=== PATIENT | female | born 1970 | race Two or more races ===

== ENCOUNTER → 2016-07-30 | Outpatient (CLI) | payer BC ==
[2016-07-30 08:27] LABS: CHLORIDE,CL 105 mmol/L (98-110); SODIUM,NA 141 mmol/L (136-146)
== END | disposition home or self-care (01) ==
LOC: MW.CHFP 07:36
PROVIDERS: ATTEND Student in an Organized Health Care Education/Training Program
DX: E78.1 Pure hyperglyceridemia (principal); I10 Essential (primary) hypertension
CPT/HCPCS: 36415; 80053; 80061

== ENCOUNTER 2019-11-24 09:55 | Day surgery (SDC) | payer BC ==
[~2019-11-24 09:55] MED LIST: Lactated Ringers 1,000 ML IV SCH; Lidocaine 2% 5 ML SDV ONE; Propofol 200 MG/20 ML SDV ONE; Sodium Chloride 0.9% 10 ML SDV IV PRN; Sodium Chloride 0.9% 10 ML Syringe FLUSH PRN; Sodium Chloride 0.9% 2.5 ML Syringe FLUSH PRN; fentaNYL 100 MCG/2 ML SDV ONE
[2019-11-24] MEDS ORDERED: Midazolam 1 MG/ML 2 ML SDV ONE (10:37)
--- NOTE | 2019-11-24 10:55 | PCM.PREANE ---
Preanesthetic Assessment - Anesthesia/Transfusion/Family Hx Anesthesia History: Prior Anesthesia Without Reaction Family History of Anesthesia Reaction: No Transfusion History: No Prior Transfusion(s) Intubation History: Unknown - Review of Systems General: No Symptoms Pulmonary: No Symptoms Cardiovascular: No Symptoms Gastrointestinal: Difficulty Swallowing Neurological: No Symptoms Other: Reports: None - Physical Assessment Vital Signs: Last Vital Signs Temp 36.1 C 11/24/19 10:12 Pulse 84 11/24/19 10:12 Resp 16 11/24/19 10:12 BP 132/83 11/24/19 10:12 Pulse Ox 98 11/24/19 10:12 Height: 5 ft 2 in Weight: 70.307 kg ASA Class: 2 Mental Status: Alert & Oriented x3 Airway Class: Mallampati = 1 Dentition: Reports: Normal Dentition Thyro-Mental Finger Breadths: 3 Mouth Opening Finger Breadths: 3 ROM/Head Extension: Full Lungs: Clear to Auscultation, Normal Respiratory Effort Cardiovascular: Regular Rate, Regular Rhythm - Allergies Allergies/Adverse Reactions: Allergies Allergy/AdvReac Type Severity Reaction Status Date / Time lisinopril Allergy Cough Verified 11/24/19 10:18 Penicillins Allergy Other Verified 11/24/19 10:18 shellfish derived Allergy Rash Verified 11/24/19 10:18 - Blood Blood Available: No - Anesthesia Plan Pre-Op Medication Ordered: None - Acknowledgements Anesthesia Type Planned: MAC Pt an Appropriate Candidate for the Planned Anesthesia: Yes Alternatives and Risks of Anesthesia Discussed w Pt/Guardian: Yes Pt/Guardian Understands and Agrees with Anesthesia Plan: Yes PreAnesthesia Questionnaire HEENT History: Reports: Other (See Below) Other HEENT History: wears glasses/contacts Cardiovascular History: Reports: High Cholesterol (presently OK per patient without medications), Hypertension, Other (See Below) Other Cardiovascular History: hx of viral myocarditis Gastrointestinal History: Reports: GERD, Other (See Below) Other Gastrointestinal History: dysphagia, fatty liver 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: Psychiatric History: Reports: Anxiety, Depression - Past Surgical History Head Surgeries/Procedures: Reports: None GI Surgical History: Reports: EGD (7-8 years ago) Female Surgical History: Reports: Hysterectomy - HOME MEDS Home Medications: Home Meds ALPRAZolam [Xanax] 1 mg PO DAILY PRN 03/18/14 [History] Desvenlafaxine [Desvenlafaxine ER] 25 mg PO DAILY 05/03/18 [History] Potassium Chloride 15 meq PO DAILY 05/03/18 [History] amLODIPine Besylate [Amlodipine Besylate] 5 mg PO DAILY 05/03/18 [History] estradioL [Estradiol] 1 mg PO DAILY 05/03/18 [History] hydroCHLOROthiazide [Hydrochlorothiazide] 12.5 mg PO DAILY 05/03/18 [History] Esomeprazole Magnesium 40 mg PO BID 11/20/19 [History] Sucralfate 1 gm PO QID 11/20/19 [History] Zolpidem [Ambien] 10 mg PO BEDTIME PRN 11/20/19 [History] - CURRENT (IN HOUSE) MEDS Current Meds: Current Medications Lactated Ringer's (Ringers, Lactated) 1,000 mls @ 125 mls/hr IV ASDIRECTED MANJU Last Admin: 11/24/19 10:21 Dose: 125 mls/hr Documented by: Sodium Chloride (Saline Flush) 10 ml FLUSH ASDIRECTED PRN PRN Reason: Keep Vein Open Sodium Chloride (Saline Flush) 2.5 ml FLUSH ASDIRECTED PRN PRN Reason: Keep Vein Open Sodium Chloride (Saline Flush) 10 ml FLUSH ASDIRECTED PRN PRN Reason: Keep Vein Open Sodium Chloride (Saline Flush) 2.5 ml FLUSH ASDIRECTED PRN PRN Reason: Keep Vein Open Sodium Chloride (Normal Saline) 10 ml IV ASDIRECTED PRN PRN Reason: IV Use Discontinued Medications Fentanyl (Sublimaze) Confirm Administered Dose 100 mcg .ROUTE .STK-MED ONE Stop: 11/24/19 08:32 Lidocaine (Xylocaine-Mpf 2%) Confirm Administered Dose 5 ml .ROUTE .STK-MED ONE Stop: 11/24/19 08:32 Midazolam HCl (Versed 1 Mg/Ml) Confirm Administered Dose 2 mg .ROUTE .STK-MED ONE Stop: 11/24/19 10:38 Propofol (Diprivan 20 Ml) Confirm Administered Dose 200 mg .ROUTE .STK-MED ONE Stop: 11/24/19 08:32
[2019-11-24] MEDS ORDERED: Propofol 200 MG/20 ML SDV ONE (11:23)
--- NOTE | 2019-11-24 11:41 | PCM.OPNOTE ---
- General Post-Op/Procedure Note Date of Surgery/Procedure: 11/24/19 Operative Procedure(s): Diagnostic EGD and screening colonoscopy Findings: Normal appearing EGD, small transverse colon polyp Pre Op Diagnosis: Dysphagia, heartburn, screening colonoscopy Post-Op Diagnosis: Dysphagia, heartburn, transverse colon polyp Anesthesia Technique: MAC Primary Surgeon: Fransisca Gutiérrez Condition: Good
--- NOTE | 2019-11-24 11:55 | PCM.POSTAN ---
POST ANESTHESIA ASSESSMENT - MENTAL STATUS Mental Status: Alert, Oriented - VITAL SIGNS Vital Signs: Last Vital Signs Temp 36.1 C 11/24/19 10:12 Pulse 69 11/24/19 11:49 Resp 12 11/24/19 11:49 BP 100/43 L 11/24/19 11:49 Pulse Ox 98 11/24/19 11:49 - RESPIRATORY Respiratory Status: Respiratory Rate WNL, Airway Patent, O2 Saturation Stable - CARDIOVASCULAR CV Status: Pulse Rate WNL, Blood Pressure Stable - GASTROINTESTINAL GI Status: No Symptoms - PAIN Pain Score: 0 - POST OP HYDRATION Hydration Status: Adequate & Stable - OBSERVATIONS Free Text/Narrative:: No anesthesia problems
--- NOTE | 2019-11-24 12:09 | PCM48HPAN ---
Post Anesthesia Note - EVALUATION WITHIN 48HRS OF ANESTHETIC Vital Signs in Normal Range: Yes Patient Participated in Evaluation: Yes Respiratory Function Stable: Yes Airway Patent: Yes Cardiovascular Function Stable: Yes Hydration Status Stable: Yes Pain Control Satisfactory: Yes Nausea and Vomiting Control Satisfactory: Yes Mental Status Recovered: Yes Vital Signs: Last Vital Signs Temp 36.2 C 11/24/19 11:55 Pulse 77 11/24/19 11:55 Resp 14 11/24/19 11:55 BP 106/56 L 11/24/19 11:55 Pulse Ox 94 L 11/24/19 11:55 - COMMENTS/OBSERVATIONS Free Text/Narrative:: No anesthesia problems
--- NOTE | 2019-11-24 13:59 | OR ---
SURGEON: FRANSISCA GUTIÉRREZ MD DATE OF PROCEDURE: 11/24/2019 PREOPERATIVE DIAGNOSES: Heartburn, dysphagia, screening colonoscopy. POSTOPERATIVE DIAGNOSES: Dysphagia, heartburn, transverse colon polyp. PROCEDURE PERFORMED: Diagnostic esophagogastroduodenoscopy and colonoscopy. PRIMARY SURGEON: Fransisca Gutiérrez MD ANESTHESIA: MAC. INSTRUMENT USED: Olympus endoscope and colonoscope. EXTENT OF EXAM: To the second portion of duodenum, to the cecum. PREPARATION: Good. LIMITATIONS: None. INDICATIONS FOR EXAMINATION: The patient is a 49-year-old female who presents with retrosternal chest burning as well as some dysphagia. She is also due for a screening colonoscopy. The patient and I discussed the diagnostic EGD and colonoscopy procedures as well as expected perioperative course and risks. She verbalized understanding and wishes to proceed. PROCEDURE IN DETAIL: The patient was brought into the endoscopy suite and placed in the left lateral decubitus position. A time-out was completed verifying the patient's name, age, date of , allergies, and procedure to be performed. A bite block was placed in the patient's mouth. Monitored anesthesia care was induced and continuous oxygen was provided via nasal cannula throughout the procedure. After adequate sedation was achieved, a well-lubricated endoscope was placed in the patient's mouth and advanced under direct visualization to the second portion of duodenum. This appeared normal and a photograph was taken. The scope was then straightened out and fully withdrawn while examining the color, texture, anatomy, and integrity of the mucosa of the upper GI tract. The duodenum appeared normal. The scope was then brought into the stomach and a photograph was taken of the pylorus and GE junction. Both appeared grossly normal. The gastric mucosa appeared free of inflammation or ulceration. Biopsies were taken of the gastric antrum, body, and fundus and sent for histologic review and H. pylori testing. The scope was then brought into the distal esophagus and a photograph was taken of the Z-line. This appeared normal and a photograph was taken. The distal esophageal mucosa appeared grossly normal, but a biopsy was taken of the esophageal mucosa 1 cm above the Z-line. The remainder of the esophageal mucosa was free of pathology. The scope was removed and this portion of the procedure terminated. A digital rectal exam was performed. This exam was within normal limits. A well-lubricated colonoscope was inserted in the rectum and advanced under direct visualization to the level of the cecum. The cecum was identified by both visual and anatomic landmarks. A photograph was taken of the cecal cap as well as with the scope retroflexed within the cecum. The scope was then fully withdrawn while examining the color, texture, anatomy, and integrity of the mucosa from the cecum to the anal canal. The patient was noted to have a very small sessile polyp within the transverse colon. This was removed in piecemeal fashion using cold biopsy forceps. The remainder of the colon appeared normal. The scope was then brought into the rectum and retroflexed to allow visualization of the anal canal opening. This appeared normal and a photograph was taken. The scope was then straightened out and fully withdrawn. The cecum to anus time was 6 minutes. The patient tolerated the procedure well and was transferred to the PACU in stable condition. ENDOSCOPIC DIAGNOSES: Dysphagia, heartburn, transverse colon polyp. RECOMMENDATIONS: Follow up in clinic in 2 weeks. RAMONA ADORNO /[id number]
== END 2019-11-24 12:20 | disposition home or self-care (01) ==
LOC: MW.SDS 09:55
PROVIDERS: ATTEND Surgery
DX: Z12.11 Encounter for screening for malignant neoplasm of colon (principal); K63.5 Polyp of colon; K21.0 Gastro-esophageal reflux disease with esophagitis; K29.50 Unspecified chronic gastritis without bleeding; F41.9 Anxiety disorder, unspecified; F32.9 Major depressive disorder, single episode, unspecified; E78.00 Pure hypercholesterolemia, unspecified; I10 Essential (primary) hypertension; E78.5 Hyperlipidemia, unspecified; R73.03 Prediabetes; G47.00 Insomnia, unspecified; E66.3 Overweight; Z88.8 Allergy status to other drugs, medicaments and biological substances; Z88.0 Allergy status to penicillin; Z91.013 Allergy to seafood; Z79.899 Other long term (current) drug therapy; Z68.28 Body mass index [BMI] 28.0-28.9, adult
CPT/HCPCS: 00813; 88305; 88312; J2001; J2250; J2704; J3010; J7120

== ENCOUNTER 2020-11-28 16:29 | Emergency (ER) | payer BC ==
--- NOTE | 2020-11-28 17:25 | EDM.PDOC ---
ED HPI GENERAL MEDICAL PROBLEM - General Chief Complaint: Respiratory Problem Stated Complaint: SHORTNESS OF BREATH, POSSIBLE LOW POTASSIUM Time Seen by Provider: 11/28/20 16:45 - History of Present Illness INITIAL COMMENTS - FREE TEXT/NARRATIVE: Patient presents to the emergency department with what she states is anxiety. Patient states she has a history of anxiety and panic attacks. She states she has had this 9 years but over the last 2 weeks it has gotten significantly worse. She states she has symptoms of anxiety and dizziness and weakness as well as chest tightness. She has had these with anxiety bouts in the past but they have been worse for the last several days. Patient states that she has had the symptoms also deviously with low potassium. Patient states several years ago in addition she had myocarditis. She denies any history of CHF or recent fevers chills infectious complaints or Covid contacts. Patient is Covid immunized. Patient states she has taken Xanax over the last 2 weeks for symptoms. She is not taking anything else for anxiety at the moment. Patient states that it has been a number of years since her last stress test. No history of thyroid disease. No cough or productive sputum. No exacerbating or alleviating factors. Patient's dizziness is more lightheaded and weakness without vertigo. 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: Other (see below) Other Treatments TINSMITH APPRENTICE: pt states she took her PRN Alprazolam 40 minutes ago with no relief - Related Data Allergies Allergy/AdvReac Type Severity Reaction Status Date / Time lisinopril Allergy Cough Verified 11/28/20 16:53 Penicillins Allergy Other Verified 11/28/20 16:53 shellfish derived Allergy Rash Verified 11/28/20 16:53 Home Meds: Home Meds ALPRAZolam [Xanax] 1 mg PO DAILY PRN 03/18/14 [History] Potassium Chloride 15 meq PO DAILY 05/03/18 [History] amLODIPine Besylate [Amlodipine Besylate] 5 mg PO DAILY 05/03/18 [History] estradioL [Estradiol] 1 mg PO DAILY 05/03/18 [History] hydroCHLOROthiazide [Hydrochlorothiazide] 12.5 mg PO DAILY 05/03/18 [History] Sucralfate 1 gm PO QID PRN 11/20/19 [History] Zolpidem [Ambien] 10 mg PO BEDTIME PRN 11/20/19 [History] Past Medical History HEENT History: Reports: Other (See Below) Other HEENT History: wears glasses/contacts Cardiovascular History: Reports: High Cholesterol, Hypertension, Other (See Below) Other Cardiovascular History: hx of viral myocarditis, hx of hypokalemia Respiratory History: Reports: None Gastrointestinal History: Reports: GERD, Other (See Below) Other Gastrointestinal History: dysphagia, fatty liver Genitourinary History: Reports: None 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: Musculoskeletal History: Reports: None Neurological History: Reports: None Psychiatric History: Reports: Anxiety, Depression Endocrine/Metabolic History: Reports: None Hematologic History: Reports: None Immunologic History: Reports: None Oncologic (Cancer) History: Reports: None Dermatologic History: Reports: None - Infectious Disease History Infectious Disease History: Reports: Chicken Pox - Past Surgical History Head Surgeries/Procedures: Reports: None HEENT Surgical History: Reports: None Cardiovascular Surgical History: Reports: None Respiratory Surgical History: Reports: None GI Surgical History: Reports: EGD Female Surgical History: Reports: Hysterectomy Endocrine Surgical History: Reports: None Musculoskeletal Surgical History: Reports: None Social & Family History - Family History Family Medical History: No Pertinent Family History - Tobacco Use Tobacco Use Status *Q: Never Tobacco User - Caffeine Use Caffeine Use: Reports: Coffee - Recreational Drug Use Recreational Drug Use: No ED ROS GENERAL - Review of Systems Review Of Systems: Comprehensive ROS is negative, except as noted in HPI. ED EXAM, GENERAL - Physical Exam Exam: See Below Free Text/Narrative:: CONSTITUTIONAL: well appearing in no acute distress SKIN: Warm, dry, and intact without rash HENT: Normocephalic, atraumatic, PULMONARY: clear to ausculation bilaterally. No rales, rhonchi, wheezing CARDIOVASCULAR: regular rate, No murmur, rubs, or gallops GASTROINTESTINAL: nondistended, nontender NEUROLOGIC: normal speech, II-XII intact. light touch/5/5 power equal and symmetric in upper and lower extremities without deficit. GCSL 15 MUSCULOSKELETAL: no gross deformities, atraumatic PSYCHIATRIC: anxious affect #1 Interpretation EKG Date: 11/28/20 Time: 18:01 EKG Interpretation Comments: 91, normal sinus rhythm, nonspecific ST/T findings Course - Vital Signs Last Recorded V/S: Last Vital Signs Temp 36.9 C 11/28/20 16:58 Pulse 101 H 11/28/20 16:58 Resp 18 11/28/20 16:58 BP 145/81 H 11/28/20 16:58 Pulse Ox 95 11/28/20 16:58 - Orders/Labs/Meds Orders: Active Orders 24 hr Category Date Time Status EKG 12 Lead [EKG Documentation Completion] [RC] STAT Care 11/28/20 17:19 Active Labs: Laboratory Tests 11/28/20 11/28/20 11/28/20 Range/Units 17:40 17:40 17:40 WBC 5.12 (4.0-11.0) K/uL RBC 4.16 L (4.30-5.90) M/uL Hgb 13.1 (12.0-16.0) g/dL Hct 37.4 (36.0-46.0) % MCV 89.9 (80.0-98.0) fL MCH 31.5 (27.0-32.0) pg MCHC 35.0 (31.0-37.0) g/dL RDW Std Deviation 43.1 (28.0-62.0) fl RDW Coeff of Holly 13 (11.0-15.0) % Plt Count 229 (150-400) K/uL MPV 9.20 (7.40-12.00) fL Neut % (Auto) 38.8 L (48.0-80.0) % Lymph % (Auto) 46.1 H (16.0-40.0) % [place] % (Auto) 9.6 (0.0-15.0) % Eos % (Auto) 5.1 (0.0-7.0) % Baso % (Auto) 0.4 (0.0-1.5) % Neut # (Auto) 2.0 (1.4-5.7) K/uL Lymph # (Auto) 2.4 (0.6-2.4) K/uL [place] # (Auto) 0.5 (0.0-0.8) K/uL Eos # (Auto) 0.3 (0.0-0.7) K/uL Baso # (Auto) 0.0 (0.0-0.1) K/uL Nucleated RBC % 0.0 /100WBC Nucleated RBCs # 0 K/uL Sodium 140 (136-145) mmol/L Potassium 3.1 L (3.5-5.1) mmol/L Chloride 103 (98-107) mmol/L Carbon Dioxide 26.6 (21.0-32.0) mmol/L BUN 21 H (7.0-18.0) mg/dL Creatinine 1.3 H (0.6-1.0) mg/dL Est Cr Clr Drug Dosing 41.86 mL/min Estimated GFR (MDRD) 43.7 ml/min Glucose 167 H (74-106) mg/dL Calcium 8.3 L (8.5-10.1) mg/dL Total Bilirubin 0.2 (0.2-1.0) mg/dL AST 18 (15-37) IU/L ALT 28 (14-63) IU/L Alkaline Phosphatase 90 (46-116) U/L Troponin I < 0.050 (0.000-0.056) ng/mL B-Natriuretic Peptide 8 (<100) PG/ML Total Protein 7.3 (6.4-8.2) g/dL Albumin 3.6 (3.4-5.0) g/dL Globulin 3.7 (2.6-4.0) g/dL Albumin/Globulin Ratio 1.0 (0.9-1.6) TSH, Ultra Sensitive 3.44 (0.36-3.74) uIU/mL Meds: Medications Discontinued Medications Generic Name Dose Route Start Last Admin Trade Name Freq PRN Reason Stop Dose Admin Potassium Chloride 40 meq 11/28/20 18:55 11/28/20 19:04 Potassium Chloride 20 Meq Tab.Er PO 11/28/20 18:56 40 meq NOW STA Administration Sodium Chloride 1,000 ml 11/28/20 18:55 Sodium Chloride 0.9% 10 Ml Sdv IV 11/28/20 18:56 NOW STA - Re-Assessments/Exams Free Text/Narrative Re-Assessment/Exam: 11/28/20 19:09 Patient presents to the emergency department as outlined above. The presentation could certainly be consistent with anxiety. Patient's EKG is nonspecific with negative cardiac enzymes and work-up overall is reassuring without definitive etiology of the patient's symptoms of anxiety that would be attributed to something other than anxiety. Patient has a slightly low potassium for which potassium was given but not so much so that it would likely explain her symptoms. There is also a mild renal insufficiency for which IV fluids to be given and patient is encouraged to follow the primary care doctor return to the emergency department she does not have a good appointment to ensure that there is no worsening of these conditions. Departure - Departure Time of Disposition: 19:11 Disposition: Home, Self-Care 01 Condition: Good Clinical Impression: Anxiety, Renal insufficiency, Hypokalemia - Discharge Information *PRESCRIPTION DRUG MONITORING PROGRAM REVIEWED*: Not Applicable *COPY OF PRESCRIPTION DRUG MONITORING REPORT IN PATIENT NEHEMIAS: Not Applicable Referrals: Neela Garcia NP [Primary Care Provider] - Forms: ED Department Discharge Additional Instructions: Follow-up with primary care doctor in 2 to 3 days for reevaluation. They will need to recheck your kidney test (your creatinine is 1.3 today) and potassium. Finally they can set you up with medications again or refer you to psychiatry for medications to prevent anxiety from occurring in the first place he may come to the emergency department and have your kidney test return if you are not able to get an appointment in the next several days. Sepsis Event Note (ED) - Evaluation Sepsis Screening Result: No Definite Risk - Focused Exam Vital Signs: Vital Signs Temp Pulse Resp BP Pulse Ox 11/28/20 16:58 36.9 C 101 H 18 145/81 H 95 - My Orders Last 24 Hours: My Active Orders 11/28/20 17:19 EKG 12 Lead [EKG Documentation Completion] [RC] STAT - Assessment/Plan Last 24 Hours: My Active Orders 11/28/20 17:19 EKG 12 Lead [EKG Documentation Completion] [RC] STAT
[2020-11-28 18:22] LABS: BLOOD UREA NITROGEN,BUN 21 mg/dL (7.0-18.0); CARBON DIOXIDE,CO2 26.6 mmol/L (21.0-32.0); CHLORIDE,CL 103 mmol/L (98-107); GLUCOSE RANDOM 167 mg/dL (74-106); POTASSIUM,K 3.1 mmol/L (3.5-5.1); SODIUM,NA 140 mmol/L (136-145)
[2020-11-28] MEDS ORDERED: Potassium Chloride 20 MEQ Tab.ER PO STA (18:55)
[2020-11-28] MEDS ORDERED: Sodium Chloride 0.9% 10 ML SDV IV STA (18:55)
--- NOTE | 2020-11-28 19:00 | CR ---
INDICATION: Shortness of breath. TECHNIQUE: Chest 1 view. COMPARISON: Chest radiograph 05/03/2018. FINDINGS: No focal consolidation, pleural effusion, or pneumothorax. Normal heart size and pulmonary vascularity. Stable slight elevation of the right hemidiaphragm. The bones are unremarkable. IMPRESSION: No acute cardiopulmonary findings. Dictated by Fior Finn MD @ 11/28/2020 6:58:[address] Fior Finn @ Nov 28 2020 6:58PM
[2020-11-28] MEDS ORDERED: Sodium Chloride 0.9% 1,000 ML IV ONE (19:27)
== END 2020-11-28 20:19 | disposition home or self-care (01) ==
LOC: MW.ED 16:29
DX: F41.9 Anxiety disorder, unspecified (principal); E87.6 Hypokalemia; N28.9 Disorder of kidney and ureter, unspecified; I10 Essential (primary) hypertension; Z79.899 Other long term (current) drug therapy; Z88.8 Allergy status to other drugs, medicaments and biological substances; Z88.0 Allergy status to penicillin; Z91.013 Allergy to seafood
CPT/HCPCS: 36415; 71045; 80053; 83880; 84443; 84484; 85025; 93005; 99285; A9270; J7030

== ENCOUNTER 2021-09-16 18:48 | Emergency (ER) | payer BC ==
[2021-09-16] MEDS ORDERED: Sodium Chloride 0.9% 2.5 ML Syringe FLUSH PRN (19:03)
[2021-09-16] MEDS ORDERED: Sodium Chloride 0.9% 10 ML Syringe FLUSH PRN (19:03)
[2021-09-16] MEDS ORDERED: Lactated Ringers 1,000 ML IV STA (19:13)
[2021-09-16 19:47] LABS: CARBON DIOXIDE,CO2 24.3 mmol/L (21.0-32.0); POTASSIUM,K 2.5 mmol/L (3.5-5.1)
[2021-09-16] MEDS ORDERED: Potassium Chloride 10% 20 MEQ/15 ML Soln 30 ML UD Cup PO ONE (19:51)
[2021-09-16] MEDS ORDERED: Potassium Chloride Riders 40 MEQ in Premix Bag 1 BAG IV ONE (19:51)
== END 2021-09-17 00:03 | disposition home or self-care (01) ==
LOC: MW.ED 18:48
DX: R00.2 Palpitations (principal); I49.3 Ventricular premature depolarization; I10 Essential (primary) hypertension; E87.6 Hypokalemia; F12.129 Cannabis abuse with intoxication, unspecified; E78.00 Pure hypercholesterolemia, unspecified; K21.9 Gastro-esophageal reflux disease without esophagitis; Z20.822 Contact with and (suspected) exposure to COVID-19; Z88.0 Allergy status to penicillin; Z91.013 Allergy to seafood; Z88.8 Allergy status to other drugs, medicaments and biological substances
CPT/HCPCS: 36415; 71045; 80053; 83036; 83735; 84132; 84484; 85025; 87635; 93005; 96360; 96361; 99285; A9270; J3480; J3490; J7120; 99291; U0002

== ENCOUNTER 2022-08-07 10:13 | Emergency (ER) | payer OTHER, BC ==
[2022-08-07] MEDS ORDERED: Ibuprofen 800 MG Tab PO ONE (11:01)
== END 2022-08-07 13:25 | disposition home or self-care (01) ==
LOC: MW.ED 10:13
DX: S80.11XA Contusion of right lower leg, initial encounter (principal); I10 Essential (primary) hypertension; Z88.0 Allergy status to penicillin; Z88.8 Allergy status to other drugs, medicaments and biological substances; X50.0XXA Overexertion from strenuous movement or load, initial encounter
CPT/HCPCS: 76881; 93971; 99283; A9270

== ENCOUNTER 2023-04-02 08:45 | Day surgery (SDC) | payer BC ==
[~2023-04-02 08:45] MED LIST changes: -Lidocaine 2% 5 ML SDV ONE; -Propofol 200 MG/20 ML SDV ONE; -Sodium Chloride 0.9% 10 ML SDV IV PRN; +Sodium Chloride 0.9% 20 ML SDV IV PRN; -fentaNYL 100 MCG/2 ML SDV ONE
[2023-04-02] MEDS ORDERED: Propofol 200 MG/20 ML SDV ONE (10:32)
[2023-04-02] MEDS ORDERED: Lidocaine 2% 5 ML SDV ONE (10:47)
== END 2023-04-02 12:04 | disposition home or self-care (01) ==
LOC: MW.SDS 08:45
PROVIDERS: ATTEND Surgery
DX: K29.50 Unspecified chronic gastritis without bleeding (principal); K57.30 Diverticulosis of large intestine without perforation or abscess without bleeding; K27.9 Peptic ulcer, site unspecified, unspecified as acute or chronic, without hemorrhage or perforation; K21.9 Gastro-esophageal reflux disease without esophagitis; I10 Essential (primary) hypertension; F41.9 Anxiety disorder, unspecified; F32.A Depression, unspecified; E78.2 Mixed hyperlipidemia; Z79.899 Other long term (current) drug therapy; Z88.0 Allergy status to penicillin; Z91.013 Allergy to seafood
CPT/HCPCS: 43239; 45378; J2704; J7120; J3490

== ENCOUNTER 2024-08-03 18:48 | Emergency (ER) | payer BC ==
[2024-08-03 19:13] LABS: BASOPHILS ABSOLUTE AUTO 0.03 K/uL (0.00-0.20); BASOPHILS PERCENT AUTO 0.4 % (0.0-1.0); EOSINOPHILS ABSOLUTE AUTO 0.11 K/uL (0.00-0.45); EOSINOPHILS PERCENT AUTO 1.5 % (0.0-6.0); HEMATOCRIT 41.8 % (37.0-47.0); HEMOGLOBIN 14.3 g/dL (12.0-16.0); IMMATURE GRAN ABSOLUTE AUTO 0.01 K/uL (0.00-0.05); IMMATURE GRAN PERCENT AUTO 0.1 % (0.0-0.4); LYMPHOCYTES ABSOLUTE AUTO 3.45 K/uL (1.00-4.80); LYMPHOCYTES PERCENT AUTO 48.3 % (24.0-44.0); MEAN CORPUSCULAR HEMOGLOBIN 31.2 pg (28.0-32.0); MEAN CORPUSCULAR HGB CONC 34.2 g/dL (32.0-36.0); MEAN CORPUSCULAR VOLUME 91.3 fL (83.0-99.0); MEAN PLATELET VOLUME 8.9 fL (9.4-12.3); MONOCYTES ABSOLUTE AUTO 0.58 K/uL (0.00-0.80); MONOCYTES PERCENT AUTO 8.1 % (0.0-8.0); NEUTROPHILS ABSOLUTE AUTO 2.97 K/uL (1.80-7.70); NEUTROPHILS PERCENT AUTO 41.6 % (41.0-71.0); PLATELET COUNT,PLT 221 K/uL (150-400); RED BLOOD CELL COUNT 4.58 M/uL (4.10-5.30); WHITE BLOOD CELL COUNT,WBC 7.15 K/uL (3.9-11.3)
[2024-08-03] MEDS: Ondansetron 4 MG Tab.DIS PO ONE (20:04)
[2024-08-03] MEDS: Alum Hydrox/Mag Hydrox/Simeth 15 ML, Lidocaine 2% 5 ML PO ONE (20:09)
[2024-08-03] MEDS: Aspirin 325 MG Tab PO ONE (20:10)
[2024-08-03] MEDS: Ondansetron 4 MG/2 ML SDV IVPUSH ONE (20:11)
[2024-08-03] MEDS: Famotidine 20 MG/2 ML SDV IVPUSH ONE (20:11)
[2024-08-03 20:12] LABS: INR 0.95 (0.86-1.11); PTT,PARTIAL THROMBOPLSTIN TIME 24.8 SEC (23.9-30.7)
[2024-08-03 20:49] LABS: PRO B-TYPE NATRIUR PEPT,BNPPRO 20 pg/mL (0-125)
[2024-08-03] MEDS: Morphine 4 MG/ML Syringe IVPUSH ONE ×3 (21:06→23:07)
[2024-08-03] MEDS: Heparin Sodium/0.45% NaCl 25,000 UNITS/250 ML BAG ONE (21:06)
[2024-08-03] MEDS: Clopidogrel 75 MG Tab PO ONE (21:06)
[2024-08-03] MEDS: Heparin Sodium/0.45% NaCl 25,000 UNITS/250 ML BAG IV SCH (21:11)
[2024-08-03] MEDS: Metoprolol Tartrate 25 MG Tab PO ONE ×2 (21:26→21:57)
[2024-08-04 00:03] LABS: LIPASE 34 U/L (16-77)
[2024-08-04 00:03] LABS: CALCIUM 8.9 mg/dL (8.5-10.1); CARBON DIOXIDE,CO2 23.4 mmol/L (21.0-32.0); EST CRCL DRUG DOSING (CG) 52.64 mL/min; MAGNESIUM 2.4 mg/dL (1.8-2.4); POTASSIUM,K 3.2 mmol/L (3.5-5.1)
[2024-08-04 03:23] LABS: BILIRUBIN TOTAL 0.2 mg/dL (0.2-1.0); CALCIUM 9.1 mg/dL (8.5-10.1); CARBON DIOXIDE,CO2 18.7 mmol/L (21.0-32.0); CREATININE 1.1 mg/dL (0.6-1.0); EST CRCL DRUG DOSING (CG) 47.85 mL/min; POTASSIUM,K 3.7 mmol/L (3.5-5.1); PROTEIN TOTAL,TP 7.9 g/dL (6.4-8.2)
[2024-08-04 05:45] LABS: A/G RATIO 1.1 (0.9-1.6); ALBUMIN 4.2 g/dL (3.4-5.0)
== END 2024-08-04 ==
LOC: MW.ED 18:48
DX: I21.4 Non-ST elevation (NSTEMI) myocardial infarction (principal); R79.89 Other specified abnormal findings of blood chemistry; I24.9 Acute ischemic heart disease, unspecified; I10 Essential (primary) hypertension; E78.00 Pure hypercholesterolemia, unspecified; Z88.0 Allergy status to penicillin; Z91.013 Allergy to seafood; Z79.899 Other long term (current) drug therapy
CPT/HCPCS: 36415; 71046; 80048; 80053; 83690; 83735; 83880; 84484; 85025; 85610; 85730; 87428; 93005; 96365; 96366; 96375; 96376; 99285; A9270; J1644; J2270; J2405; 93010